=== PATIENT | male | born 1965 | race Caucasian/White ===

== ENCOUNTER 2021-01-02 13:00 | Outpatient (CLI) | payer BC, SELFPAY ==
--- NOTE | ~2021-01-02 | XR_ITS ---
EXAMINATION: XR chest 2V 01/02/2021 13:19 INDICATION: Cough for months PROCEDURE: 2 view chest COMPARISON: No prior studies for comparison. FINDINGS: The lungs are clear. The cardiomediastinal silhouette is within normal limits. There are no pleural effusions. There is no pneumothorax suspected. IMPRESSION: 1: NO ACUTE CARDIOPULMONARY DISEASE. Reviewed, dictated and finalized at location A.
--- NOTE | 2021-01-02 13:24 | ECG_ITS ---
Measurements Intervals [place] Rate: 85 P: 34 [place]: 167 QRS: -20 QRSD: 125 T: 40 QT: 352 QTc: 419 Interpretive Statements SINUS RHYTHM INCOMPLETE RIGHT BUNDLE BRANCH BLOCK DELAYED PRECORDIAL R/S TRANSITION BORDERLINE ECG Electronically Signed On 01-02-2021 13:44:47 CDT by Mal Hoffman D.O.
== END 2021-01-02 13:01 | disposition home or self-care (01) ==
LOC: ANHIMG 13:02
PROVIDERS: PCP Family Medicine; Visit Provider Nurse Practitioner Family
DX: R05 Cough (principal); R06.00 Dyspnea, unspecified; R00.2 Palpitations; I45.10 Unspecified right bundle-branch block
CPT/HCPCS: 71046; 93005

== ENCOUNTER 2021-01-04 10:53 | Outpatient (CLI) | payer BC, SELFPAY ==
--- NOTE | 2021-01-09 12:40 | WPDHOLTEREM ---
Holter/Event Monitor Holter/Event Monitor Date of procedure: 01/04/21 Holter/Event Procedure: 48 Hr Holter Monitor Indications: Dyspnea Conclusion: 1. 48 hour holter monitor on 01/04/21. 2. Underlying rhythm is sinus rhythm. HR range 51-128 bpm; average HR 72 bpm. 3. There are 30 premature supraventricular complexes. No supraventricular tachycardia. 4. There are 10 premature ventricular complexes. No ventricular tachycardia. 5. No sinoatrial or atrioventricular blocks. No significant pauses greater than 2 seconds. 6. Patient reports symptoms of dizziness/anxiousness which demonstrate sinus rhythm, HR range 91-105 bpm.
== END 2021-01-04 10:54 | disposition home or self-care (01) ==
PROVIDERS: PCP Family Medicine; Visit Provider Nurse Practitioner Family
DX: R00.2 Palpitations (principal); R05 Cough; R06.00 Dyspnea, unspecified
CPT/HCPCS: 93225; 93226

== ENCOUNTER → 2021-02-01 14:10 | Outpatient (CLI) | payer BC, SELFPAY ==
--- NOTE | ~2021-02-01 | US_ITS ---
EXAMINATION: US carotid duplex BI DATE: 02/01/2021 16:15 INDICATION: Syncope and collapse. Dizziness.. TECHNIQUE: Grayscale, color Doppler, and pulsed Doppler images of the cervical carotid arteries were obtained. The degree of vessel stenosis is placed in one of the following categories: normal, <50%, 5 0-69%, >=70% but less than near-occlusion, near-occlusion, or total occlusion. Note that percent sten osis relative to normal distal artery lumen diameter is indirectly measured from velocity measurement s as described by Mario, et al. Radiology 2003; 229:340-346. COMPARISON: None. FINDINGS: RIGHT: The right common carotid artery (CCA) peak systolic velocity (PSV) is 90 cm/s. The right internal car otid artery (ICA) PSV is 60 cm/s. The right ICA end-diastolic velocity (EDV) is 24 cm/s. The right IC A/CCA PSV ratio is 0.7. Grayscale and color Doppler images yield an estimate of <50% diameter reducti on from plaque in the ICA. The external carotid artery (ECA) PSV is 48 cm/s. There is antegrade flow in the right vertebral artery. LEFT: The left CCA PSV is 88 cm/s. The left ICA PSV is 60 cm/s. The left ICA EDV is 22 cm/s. The left ICA/C CA PSV ratio is 0.7. Grayscale and color Doppler images yield an estimate of <50% diameter reduction from plaque in the ICA. The ECA PSV is 63 cm/s. There is antegrade flow in the left vertebral artery. IMPRESSION: 1. <50% stenosis in the right internal carotid artery. 2. <50% stenosis in the left internal carotid artery. Reviewed, dictated and finalized at location A.
--- NOTE | ~2021-02-01 | MR_ITS ---
EXAMINATION: MR brain/brain stem wo con DATE: 02/01/2021 14:54 INDICATION: Dizziness. Syncope. TECHNIQUE: Magnetic resonance imaging (MRI) of the brain and brainstem was performed without intraven ous contrast. Sequences included sagittal, coronal, and axial T1-weighted FSE, axial diffusion-weight ed FS EPI, axial T2*-weighted GRE, axial T2-weighted FLAIR Propeller, and axial T2-weighted Propeller . Apparent diffusion coefficient (ADC) maps were created. COMPARISON: None. FINDINGS: There is an empty sella. There is a small parahippocampal fissure cyst on the right. There are scattered areas of nonspecific increased T2-weighted signal intensity in the cerebral white matte r, which is within normal limits for the patient's age. There is no intracranial hemorrhage, acute in farction, or abnormal intracranial mass lesion. The ventricles are normal in size. There is mucosal t hickening in the paranasal sinuses. The orbits are normal. The mastoid air cells are normal. IMPRESSION: 1. No etiology for the patient's symptoms. Reviewed, dictated and finalized at location A.
== END ==
PROVIDERS: PCP Family Medicine; Visit Provider Nurse Practitioner Family
DX: R55 Syncope and collapse (principal); E78.5 Hyperlipidemia, unspecified; I65.23 Occlusion and stenosis of bilateral carotid arteries
CPT/HCPCS: 70551; 93880

== ENCOUNTER 2021-02-12 07:35 | Outpatient (CLI) | payer BC, SELFPAY ==
--- NOTE | 2021-02-12 07:52 | EST_ITS ---
Patient Info Name: Joshua Sierra Age: 55 years : 1965 Gender: Male Ht: 69 in Wt: 190 lbs BSA: 2.07 m2 HR: 61 bpm BP: 113 / 79 mmHg Heart Rhythm: Sinus Rhythm Exam Date: 02/12/2021 8:36 AM Exam Location: [facility] Stress Patient Status: Outpatient Admit Date: 02/12/2021 Staff Ordering Physician: Martha Childress NP Attending Provider: Martha Childress NP Exercise Technologist: Aura Reyna CT Exercise Physician: Mal Hoffman DO Exam Type: CA stress test treadmill Study Info Indications I49.3 - Ventricular premature depolarization R06.00 - Dyspnea, unspecified An exercise stress test was performed. Summary 1. 1. Negative Nikko exercise stress test for ischemic ST changes by ECG criteria. 2. 2. Good functional capacity, achieving 11 METs of workload. 3. 3. Appropriate HR response to exercise. 4. 4. Appropriate HR recovery at 1 minute post exercise. 5. 5. No imaging with stress testing. 6. 6. Patient informed of the above results. Protocol: Nikko Stress ECG Details Stage: REST Duration (min): 1 min : 20 sec Speed (mph): 0.0 Grade (%): 0 HR (bpm): 66 SBP (mmHg): 113 DBP (mmHg): 79 METS: --- Stage: REST Duration (min): 6 min : 1 sec Speed (mph): 0.0 Grade (%): 0 HR (bpm): 66 SBP (mmHg): 113 DBP (mmHg): 79 METS: --- Stage: STAGE 1 Duration (min): 1 min : 0 sec Speed (mph): 1.7 Grade (%): 10 HR (bpm): 87 SBP (mmHg): 113 DBP (mmHg): 79 METS: --- Stage: STAGE 1 Duration (min): 2 min : 0 sec Speed (mph): 1.7 Grade (%): 10 HR (bpm): 101 SBP (mmHg): 113 DBP (mmHg): 79 METS: --- Stage: STAGE 1 Duration (min): 3 min : 0 sec Speed (mph): 1.7 Grade (%): 10 HR (bpm): 94 SBP (mmHg): 113 DBP (mmHg): 79 METS: --- Stage: STAGE 2 Duration (min): 1 min : 0 sec Speed (mph): 2.5 Grade (%): 12 HR (bpm): 107 SBP (mmHg): 149 DBP (mmHg): 61 METS: --- Stage: STAGE 2 Duration (min): 2 min : 0 sec Speed (mph): 2.5 Grade (%): 12 HR (bpm): 110 SBP (mmHg): 152 DBP (mmHg): 67 METS: --- Stage: STAGE 2 Duration (min): 3 min : 0 sec Speed (mph): 2.5 Grade (%): 12 HR (bpm): 112 SBP (mmHg): 152 DBP (mmHg): 67 METS: --- Stage: STAGE 3 Duration (min): 1 min : 0 sec Speed (mph): 3.4 Grade (%): 14 HR (bpm): 123 SBP (mmHg): 182 DBP (mmHg): 72 METS: --- Stage: STAGE 3 Duration (min): 2 min : 0 sec Speed (mph): 3.4 Grade (%): 14 HR (bpm): 135 SBP (mmHg): 182 DBP (mmHg): 72 METS: --- Stage: STAGE 3 Duration (min): 3 min : 0 sec Speed (mph): 3.4 Grade (%): 14 HR (bpm): 140 SBP (mmHg): 168 DBP (mmHg): 73 METS: --- Stage: STAGE 4 Duration (min): 0 min : 33 sec Speed (mph): 4.2 Grade (%): 16 HR (bpm): 143 SBP (mmHg): 168 DBP (mmHg): 73
--- NOTE | 2021-02-12 07:52 | ECHO_ITS ---
Patient Info Name: Joshua Sierra Age: 55 years : 1965 Gender: Male Ht: 69 in Wt: 190 lbs BSA: 2.07 m2 HR: 65 bpm BP: 150 / 90 mmHg Technical Quality: Good Exam Date: 02/12/2021 8:02 AM Exam Location: [facility] Patient Status: Outpatient Admit Date: 02/12/2021 Staff Ordering Physician: Martha Childress NP Jewel Grinder: Leandra Chaudhari RDCS Attending Provider: Martha Childress NP Referring Physician: Fior LOVING; Exam Type: CA echo doppler color flow Study Info Indications I49.3 - Ventricular premature depolarization Complete two-dimensional, color flow and Doppler transthoracic echocardiogram is performed. Summary 1. Complete two-dimensional, color flow and Doppler transthoracic echocardiogram is performed. 2. Left ventricular chamber dimension is normal. 3. Left ventricular systolic function is normal, estimated at 60-65%. 4. The left ventricular diastolic function is normal. 5. E/e' 8 is minimally elevated. 6. Global longitudinal strain is normal at -17.1%. 7. There is mild aortic valve sclerosis. 8. There is mild tricuspid valve regurgitation. 9. No pulmonary hypertension, estimated pulmonary arterial systolic pressure is 33 mmHg. Left Ventricle E/e' 8 is minimally elevated. Global longitudinal strain is normal at -17.1%. Left ventricular chamber dimension is normal. Left ventricular systolic function is normal, estimated at 60-65%. The left ventricular diastolic function is normal. Right Ventricle Right ventricular chamber dimension is normal. Right ventricular systolic function is normal. Left Atria Left atrial chamber dimension is normal. Right Atria Right atrial chamber dimension is normal. Aortic Valve The aortic valve is trileaflet. There is mild aortic valve sclerosis. There is no aortic valve stenosis. There is no aortic valve regurgitation. Pulmonic Valve There is no pulmonic regurgitation. Mitral Valve There is no mitral valve stenosis. There is no mitral valve regurgitation. Tricuspid Valve There is mild tricuspid valve regurgitation. No pulmonary hypertension, estimated pulmonary arterial systolic pressure is 33 mmHg. Pericardium/Pleural There is no pericardial effusion. Inferior Vena Cava Normal inferior vena cava with >50% collapse upon inspiration consistent with normal right atrial pressure, 5 mmHg. Aorta The aortic root size at the sinus of Valsalva is normal. Left Ventricular Outflow Tract Name Value Normal LVOT 2D LVOT Diameter 2.0 cm LVOT Doppler LVOT Peak Gradient 5 mmHg LVOT Mean Gradient 3 mmHg LVOT VTI 21 cm LVOT VTI/AV VTI Ratio 1.0 LVOT Stroke Volume 65 ml LVOT CO 4.5 l/min LVOT CI 2.2 l/min/m2 Pulmonic Valve Name Value Normal
== END 2021-02-12 07:36 | disposition home or self-care (01) ==
LOC: ANHCARD 07:36
PROVIDERS: PCP Family Medicine; Visit Provider Nurse Practitioner Family
DX: I49.3 Ventricular premature depolarization (principal); R00.2 Palpitations; R06.00 Dyspnea, unspecified; I36.1 Nonrheumatic tricuspid (valve) insufficiency
CPT/HCPCS: 93017; 93306

== ENCOUNTER 2021-04-10 11:07 | Outpatient (CLI) | payer BC, SELFPAY ==
--- NOTE | ~2021-04-10 | XR_ITS ---
EXAMINATION: XR hand LT min 3V DATE: 04/10/2021 11:31 INDICATION: Left hand fifth digit trigger finger. TECHNIQUE: 3 views of left hand were obtained. COMPARISON: None. FINDINGS: Bone alignment is normal. No fracture. There is mild osteoarthritis of third metacarpophala ngeal joint, fifth proximal interphalangeal joint, and second-fifth distal interphalangeal joints. IMPRESSION: 1. Mild polyarticular osteoarthritis. Reviewed, dictated and finalized at location D. ESIS SPECIALIST
== END 2021-04-10 11:08 | disposition home or self-care (01) ==
LOC: ANHIMG 11:09
PROVIDERS: PCP Family Medicine; Visit Provider Nurse Practitioner Family
DX: M19.042 Primary osteoarthritis, left hand (principal)
CPT/HCPCS: 73130

== ENCOUNTER 2021-07-28 10:46 | Emergency (ER) | payer BC, SELFPAY ==
[2021-07-28 10:53] VITALS: BP 134/92; PULSE 62; RESP 18; TEMP 36.4; O2SAT 99
[2021-07-28 11:00] VITALS: PULSE 69
[2021-07-28 11:05] VITALS: O2SAT 99
--- NOTE | 2021-07-28 11:25 | ECG_ITS ---
Measurements Intervals [place] Rate: 66 P: 18 [place]: 162 QRS: -14 QRSD: 126 T: -2 QT: 380 QTc: 398 Interpretive Statements SINUS RHYTHM RIGHT BUNDLE-BRANCH BLOCK BORDERLINE ECG COMPARED TO ECG 01/02/2021 13:38:04 CRITERIA FOR RIGHT BUNDLE-BRANCH BLOCK ARE PRESENT Electronically Signed On 07-29-2021 11:00:27 CDT by Redd Jara M.D.
[2021-07-28 11:45] VITALS: BP 129/84; BP 137/82; PULSE 68; PULSE 70
[2021-07-28 11:46] VITALS: BP 120/75; PULSE 73
[2021-07-28 11:47] LABS: Basophils Absolute Auto 0.1 K/mm3 (0.0-0.1); Basophils Percent Auto 0.5 % (0.2-1.2); Eosinophils Percent Auto 0.4 % (0-4.4); Hematocrit 45.1 % (42.0-52.0); Hemoglobin 14.8 g/dL (14.0-18.0); Immature Granulocyte Absolute 0.04 K/mm3 (0.00-0.031); Immature Granulocyte Percent A 0.4 % (0-0.5); Lymphocytes Absolute Auto 1.07 K/mm3 (0.9-3.2); Lymphocytes Percent Auto 11.2 % (18.3-44.2); Mean Corpuscular HGB Conc 32.8 g/dl (32-36); Mean Corpuscular Hemoglobin 30.8 pg (26-34); Mean Platelet Volume 9.8 fl (7.4-10.4); Monocytes Absolute Auto 0.7 K/mm3 (0.1-0.6); Monocytes Percent Auto 7.3 % (2.6-8.5); Neutrophils Absolute Auto 7.6 K/mm3 (1.3-6.7); Neutrophils Percent Auto 80.2 % (45.5-73.1); Platelet Count Result 220 k/mm3 (150-375); Red Cell Distribution Width 13.4 % (11.5-14.5); White Blood Count 9.5 K/mm3 (4.5-10.0)
[2021-07-28 11:57] LABS: Alanine Aminotransferase 25 U/L (4-50); Albumin Level 4.5 g/dL (3.5-5.1); Alkaline Phosphatase 57 U/L (38-126); Anion Gap 6 mmol/L (8-16); Aspartate Amino Transferase 39 U/L (17-59); Bilirubin,Total 0.5 mg/dL (0.2-1.3); Blood Urea Nitrogen 20 mg/dL (9-20); Carbon Dioxide 29 mmol/L (22-30); Chloride 101 mmol/L (98-107); Estimated CRCL calculation 89 ml/min; Estimated Glomerular Filt Rate > 60; Glucose 121 mg/dL (65-110); Potassium 4.8 mmol/L (3.4-5.0); Sodium 136 mmol/L (137-145)
--- NOTE | 2021-07-28 12:31 | ED.SYNCOPE ---
HPI - Syncope General Chief Complaint: Syncope Stated Complaint: syncope Time Seen by Provider: 07/28/21 12:01 Source: patient History of Present Illness HPI narrative: Patient presents with a syncopal event. Reports a history of the same and has seen his primary care doctor as well as cardiology had stress test as well as Holter monitor and ultrasounds reports all his tests are reassuring. Reports his events are sporadic and he has not had an episode for approximately 6 months. Today he was in yazdanism just sitting there when he felt warm all over his body typical of his prior events and then his head rolled back it was a witnessed event family was nearby he woke up after few seconds and then had another event and they laid him flat on the pew. Patient did not fall down or strike his head he woke up after approximately 1 minute since or 2 episodes they called EMS and he was transported to the ER. Patient ports he felt tired now but otherwise feels well he denies any chest pain or shortness of breath prior to the event. He denies s any recent fevers, cough, congestion. Related Data Home Medications Medication Instructions Recorded Confirmed finasteride 5 mg tablet 5 mg PO DAILY 02/17/19 03/13/21 Allergies Allergy/AdvReac Type Severity Reaction Status Date / Time No Known Allergies Allergy Unknown Verified 07/28/21 11:02 Review of Systems Review of Systems: CONSTITUTIONAL: Denies fever, chills, or sweats. EYES: Denies visual changes, redness, or discharge. ENT: Denies rhinorrhea, congestion, sore throat, or otalgia. CARDIOVASCULAR: Denies chest pain, palpitations, or edema. RESPIRATORY: Denies cough or dyspnea. GASTROINTESTINAL: Denies abdominal pain, nausea, vomiting, or diarrhea. GENITOURINARY: Denies dysuria or hematuria. SKIN: Denies rash or itching. MUSCULOSKELETAL: Denies back pain, joint pain, or myalgia. NEUROLOGIC: Denies headache, numbness, dizziness, or weakness. PSYCHIATRIC: Denies anxiety or depression. All systems reviewed & are unremarkable except as noted in HPI and below PMFSH Past Medical History Medical History Abnormal x-ray of hand Allergies BMI 28.0-28.9,adult Nontraumatic separation of muscle Plantar fascial fibromatosis Ringing in right ear Tinnitus Family History Family History Mother Depression Family history of elevated blood lipids Alzheimer's disease Sibling Depression Patient's brother is in good health Afib Father Family history of malignant neoplasm Pacemaker Social History Social History Smoking status: Never smoker Second hand tobacco smoke exposure: Yes Alcohol intake: current Substance use: never Substance use type: does not use 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 HEAD: Normocephalic, atraumatic. EYES: PERRLA and EOMI. ENT: Nares clear, no rhinorrhea or epistaxis. Mucous membranes moist. NECK: Supple. No masses. No JVD CHEST: Clear to auscultation. No respiratory distress. No wheezes rales or rhonchi HEART: Regular rate and rhythm. No murmur heard. Normal peripheral pulses. ABDOMEN: Soft, nontender, nondistended, normal active bowel sounds. EXTREMITIES: Normal range of motion. No edema. SKIN: Warm, dry, no rash. NEURO: No focal deficits. Alert and oriented x3. PSYCH: Normal mood and affect. Course Vital Signs Vital signs: Vital Signs Temperature 36.4 C 07/28/21 10:53 Pulse Rate 62 07/28/21 10:53 Respiratory Rate 18 07/28/21 10:53 Blood Pressure 134/92 H 07/28/21 10:53 Pulse Oximetry 99 07/28/21 10:53 Temperature 36.4 C 07/28/21 10:53 Pulse Rate 80 07/28/21 12:44 Respiratory Rate
[2021-07-28 12:44] VITALS: BP 133/86; PULSE 80; RESP 21; O2SAT 99
== END 2021-07-28 12:47 | disposition home or self-care (01) ==
PROVIDERS: Physician Assistant; Emergency Provider Emergency Medicine; PCP Family Medicine
DX: R55 Syncope and collapse (principal); I45.10 Unspecified right bundle-branch block
CPT/HCPCS: 36415; 80053; 85025; 93005; 99284

== ENCOUNTER → 2021-09-26 11:52 | Outpatient (CLI) | payer BC, SELFPAY ==
--- NOTE | ~2021-09-26 | US_ITS ---
EXAMINATION: US thyroid DATE: 09/26/2021 12:10 INDICATION: Localized swelling, mass and lump, neck. TECHNIQUE: Multiple ultrasound images of the thyroid were obtained. COMPARISON: None. FINDINGS: The right thyroid lobe measures 6.0 x 1.2 x 2.6 cm. The left thyroid lobe measures 5.8 x 2.0 x 2.2 c m. There is normal echotexture and echogenicity throughout the thyroid gland. No discrete nodules id entified. Normal vascular flow is present. IMPRESSION: 1. Normal thyroid. Reviewed, dictated and finalized at location B. IMPRESSION: 1. Normal thyroid.
== END ==
PROVIDERS: PCP Nurse Practitioner Family; Visit Provider Nurse Practitioner Family
DX: R22.1 Localized swelling, mass and lump, neck (principal)
CPT/HCPCS: 76536

== ENCOUNTER 2021-10-18 01:55 | Day surgery (SDC) | payer BC, SELFPAY ==
[2021-10-09 11:14] VITALS: BMI 28.1
[2021-10-18 11:55] VITALS: BP 143/87; PULSE 78; RESP 18; TEMP 36.8; O2SAT 97; BMI 29.0
[2021-10-18] MEDS: LACTATED RINGERS 1,000 ML 150 ML IV CONT (12:16)
--- NOTE | 2021-10-18 12:24 | PM.HPGS ---
History of Present Illness History of Present Illness Consent: Risks, benefits, and alternatives have been discussed and questions answered. Patient agrees to proceed with procedure. Chief complaint: dysphagia Narrative: Joshua Sierra is a 56 year old male ?dysphagia? for approximately a year and a half but is progressively getting worse. ? States he does not really consider it dysphagia.? Reports on the right-side of his neck (next to thryroid) that he has this intermittent sensation that something is there ? also reports associated tickling sensation.? this happens states feels like he can not breathe. sensation can last a few seconds to few minutes.? sometimes again occur several times a day, ? States this does not happen every day. ? States he will try to clear his throat or cough this does not always help. Review of Systems Review of Systems: All systems reviewed & are unremarkable except as noted in HPI and below PMFSH Past Medical History Medical History Abnormal x-ray of hand Allergies BMI 28.0-28.9,adult Nontraumatic separation of muscle Overweight (BMI 25.0-29.9) Plantar fascial fibromatosis Ringing in right ear Tinnitus Family History Family History Mother Depression Family history of elevated blood lipids Alzheimer's disease Sibling Depression Patient's brother is in good health Afib Father Family history of malignant neoplasm Pacemaker Social History Social History Smoking status: Never smoker Second hand tobacco smoke exposure: Yes Alcohol intake: current Alcohol use details: occasiona use Substance use: never Substance use type: does not use Living arrangements: with family Additional living arrangements comments: lives with life partner 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 Gender identity (if verbalized by the patient): Male Spiritual care concerns: No Meds Home Medications and Allergies Home Medications Medication Instructions Recorded Confirmed Type finasteride 5 mg tablet 5 mg PO DAILY 02/17/19 10/18/21 History hydroxyzine HCl 10 mg tablet 10 mg PO TID PRN anxiety #30 tabs 01/30/21 10/18/21 Rx pravastatin 20 mg tablet 10 mg PO DAILY #90 tabs 03/13/21 10/18/21 Rx escitalopram oxalate 10 mg tablet 10 mg PO DAILY #90 tabs 07/22/21 10/18/21 Rx (Lexapro) fexofenadine 60 mg capsule 60 mg PO PRN PRN Allergic Symptoms 10/09/21 10/18/21 History pantoprazole 40 mg tablet,delayed 40 mg PO QAM #30 tabs 10/18/21 Rx release Allergies Allergy/AdvReac Type Severity Reaction Status Date / Time No Known Allergies Allergy Unknown Verified 10/18/21 12:04 Vital Signs Vital Signs - 24 hr 10/18/21 11:55 Temperature 36.8 C Pulse Rate 78 Respiratory Rate 18 Blood Pressure 143/87 H Pulse Oximetry 97 Oxygen Delivery Room Air Exam Const: General: alert Orientation/consciousness: patient oriented x3 Resp: Auscultation: clear to auscultation bilaterally Cardio: Rhythm: regular rhythm GI: GI Palp: Yes Soft to palpation and No Tenderness to palpation present (GI) Neuro: General: patient oriented x3 Assessment and Plan Assessment and plan (1) Dysphagia: Code(s): R13.10 - Dysphagia, unspecified Status: Acute Assessment and Plan: EGD with possible biopsy or dilatation or cautery.
--- NOTE | 2021-10-18 12:42 | WPDANESEPPF ---
Anes - Initial Pre Proc Eval Procedure: Operation Date: 10/18/21 13:15 Proposed Procedures p Esophagogastroduodenoscopy - Thomas Strong MD Date/Time: 10/18/21 12:42 Surgeon: Thomas Strong MD Pre Op Diagnosis: dysphagia Patient Data Age: 56 Gender: M Height: 1.75 m Weight: 89.4 kg Last Vital Signs Temp 98.2 F 10/18/21 11:55 Pulse 78 10/18/21 11:55 Resp 18 10/18/21 11:55 BP 143/87 H 10/18/21 11:55 Pulse Ox 97 10/18/21 11:55 O2 Del Method Room Air 10/18/21 11:55 Allergies Allergy/AdvReac Type Severity Reaction Status Date / Time No Known Allergies Allergy Unknown Verified 10/18/21 12:04 Home Medications Medication Instructions Recorded Confirmed Type finasteride 5 mg tablet 5 mg PO DAILY 02/17/19 10/18/21 History hydroxyzine HCl 10 mg tablet 10 mg PO TID PRN anxiety #30 tabs 01/30/21 10/18/21 Rx pravastatin 20 mg tablet 10 mg PO DAILY #90 tabs 03/13/21 10/18/21 Rx escitalopram oxalate 10 mg tablet 10 mg PO DAILY #90 tabs 07/22/21 10/18/21 Rx (Lexapro) fexofenadine 60 mg capsule 60 mg PO PRN PRN Allergic Symptoms 10/09/21 10/18/21 History Patient hx anesthesia problems: none Family hx anesthesia problems: none Results Review: All pre-operative results and documents have been reviewed as part of the pre-operative evaluation. [facility] Past Medical History Medical History (Updated 10/18/21 @ 12:24 by Thomas Strong MD) Abnormal x-ray of hand Allergies BMI 28.0-28.9,adult Nontraumatic separation of muscle Overweight (BMI 25.0-29.9) Plantar fascial fibromatosis Ringing in right ear Tinnitus Family History Family History Mother Depression Family history of elevated blood lipids Alzheimer's disease Sibling Depression Patient's brother is in good health Afib Father Family history of malignant neoplasm Pacemaker Social History Social History Smoking status: Never smoker Second hand tobacco smoke exposure: Yes Alcohol intake: current Alcohol use details: occasiona use Substance use: never Substance use type: does not use Living arrangements: with family Additional living arrangements comments: lives with life partner 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 Informed Consent: The patient's anesthetic plan and its attendant risks and benefits were discussed with the patient/family/POA. Questions were solicited and answers provided to the satisfaction of the patient/family/POA.
[2021-10-18 13:21] VITALS: BP 118/72; PULSE 66; RESP 24; O2SAT 98
[2021-10-18 13:31] VITALS: BP 120/82; PULSE 68; RESP 20; O2SAT 98
[2021-10-18 13:41] VITALS: BP 122/87; PULSE 64; RESP 20; O2SAT 97
== END 2021-10-18 13:59 | disposition home or self-care (01) ==
PROVIDERS: PCP Nurse Practitioner Family; Visit Provider Internal Medicine Gastroenterology
PROC: 0DJ08ZZ Inspection of Upper Intestinal Tract, Via Natural or Artificial Opening Endoscopic (ICD-10-PCS; CPT 43235; principal; 2021-10-18 13:15)
DX: K22.70 Barrett's esophagus without dysplasia (principal); R13.12 Dysphagia, oropharyngeal phase
CPT/HCPCS: 43239; 87081; 88305; J2001; J2704; J7120

== ENCOUNTER → 2022-01-15 15:12 | Outpatient (CLI) | payer BC, SELFPAY ==
--- NOTE | ~2022-01-15 | XR_ITS ---
EXAM: XR knee RT 3V DATE: 01/15/2022 15:35 HISTORY: M25.561 - Pain in right knee . COMPARISON: 07/10/2021. FINDINGS: Normal mineralization. No fracture or dislocation. No lytic or blastic lesion. Mild medial joint space narrowing. Mild tricompartmental osteophytosis. Moderate volume joint fluid. No erosion or periosteal change. Soft tissues within normal limits. IMPRESSION: Mild tricompartmental right knee osteoarthritis. Moderate right knee joint effusion. Reviewed, dictated and finalized at location K. IMPRESSION: Mild tricompartmental right knee osteoarthritis. Moderate right kne e joint effusion.
== END ==
PROVIDERS: PCP Family Medicine; Visit Provider Nurse Practitioner Family
DX: M17.11 Unilateral primary osteoarthritis, right knee (principal); M25.461 Effusion, right knee
CPT/HCPCS: 73562

== ENCOUNTER → 2022-01-22 11:20 | Outpatient (CLI) | payer BC, SELFPAY ==
--- NOTE | ~2022-01-22 | US_ITS ---
EXAMINATION: US abdomen complete DATE: 01/22/2022 12:03 INDICATION: R10.9 - Unspecified abdominal pain TECHNIQUE: Multiple grayscale and Doppler ultrasound images of the abdomen were obtained. COMPARISON: None available. FINDINGS: The visualized portions of the pancreas are normal. The liver is normal with normal echogen icity and echotexture. No surface nodularity. Normal hepatopetal flow in the main portal vein. The ga llbladder is normal with no abnormal wall thickening, pericholecystic fluid or stones. The common jewell e duct measures 5 mm. There was no sonographic Patterson sign. The visualized portions of the aorta and inferior vena cava are normal. The right kidney measures 9.4 x 5.0 x 5.7. The left kidney measures 10.8 x 5.9 x 4.4. The kidneys dem onstrate normal parenchymal echogenicity. Simple left renal cysts. There is no hydronephrosis. The sp lisbet is normal in appearance and measures 11 cm. IMPRESSION: Normal abdominal ultrasound findings. Reviewed, dictated and finalized at location K.
== END ==
PROVIDERS: PCP Family Medicine; Visit Provider Nurse Practitioner Family
DX: R10.9 Unspecified abdominal pain (principal); N28.1 Cyst of kidney, acquired; A09 Infectious gastroenteritis and colitis, unspecified
CPT/HCPCS: 76700

== ENCOUNTER 2022-04-11 02:00 | Day surgery (SDC) | payer BC, SELFPAY ==
[2022-04-01 10:30] VITALS: BMI 28.1
[2022-04-11 11:46] VITALS: BP 156/102; PULSE 110; RESP 18; TEMP 36.2; O2SAT 98
[2022-04-11] MEDS: LACTATED RINGERS 1,000 ML 150 ML IV CONT (11:50)
--- NOTE | 2022-04-11 12:16 | WPDANESEPPF ---
Anes - Initial Pre Proc Eval Procedure: Operation Date: 04/11/22 13:00 Proposed Procedures p Colonoscopy - Thomas Strong MD Date/Time: 04/11/22 12:16 Surgeon: Thomas Strong MD Pre Op Diagnosis: melena Patient Data Age: 57 Gender: M Height: 1.75 m Weight: 86.5 kg Last Vital Signs Temp 36.2 C L 04/11/22 11:46 Pulse 110 H 04/11/22 11:46 Resp 18 04/11/22 11:46 BP 156/102 H 04/11/22 11:46 Pulse Ox 98 04/11/22 11:46 O2 Del Method Room Air 04/11/22 11:46 Allergies Allergy/AdvReac Type Severity Reaction Status Date / Time No Known Allergies Allergy Unknown Verified 04/11/22 11:46 Home Medications Medication Instructions Recorded Confirmed Type finasteride 5 mg tablet 5 mg PO DAILY 02/17/19 04/02/22 History pantoprazole 40 mg tablet,delayed 40 mg PO QAM #30 tabs 01/01/22 04/02/22 Rx release tamsulosin 0.4 mg capsule (Flomax) 0.4 mg PO DAILY 01/15/22 04/02/22 History cetirizine 10 mg capsule (Zyrtec) 10 mg PO DAILY PRN Allergy Symptoms 01/21/22 04/02/22 History escitalopram oxalate 10 mg tablet 10 mg PO DAILY #90 tabs 02/09/22 04/02/22 Rx (Lexapro) albuterol sulfate 90 mcg/actuation 2 inh inhalation Q4H PRN shortness 04/02/22 04/11/22 Rx aerosol inhaler of breath or wheezing #8.5 grams pravastatin 20 mg tablet See Rx Instructions .Route 04/08/22 04/11/22 Rx .COMPLEX #90 tabs Patient hx anesthesia problems: none Family hx anesthesia problems: none Results Review: All pre-operative results and documents have been reviewed as part of the pre-operative evaluation. [facility] Past Medical History Medical History (Updated 04/10/22 @ 09:23 by Joby Lucero DO) Abnormal x-ray of hand Allergies Anxiety BMI 28.0-28.9,adult Hyperlipidemia LDL goal <130 Nontraumatic separation of muscle Overweight (BMI 25.0-29.9) Plantar fascial fibromatosis Ringing in right ear Tinnitus Surgical History Surgical History (Updated 04/10/22 @ 09:23 by Joby Lucero DO) History of surgical removal of pituitary gland Family History Family History Mother Depression Family history of elevated blood lipids Alzheimer's disease Sibling Depression Patient's brother is in good health Afib Father Family history of malignant neoplasm Pacemaker Social History Social History (Updated 04/02/22 @ 12:41 by Beba Hensley [facility]) Smoking status: Never smoker Second hand tobacco smoke exposure: Yes Alcohol intake: current Drinks per week: 2 Alcohol use details: occasiona use Substance use: never Substance use type: does not use Lack of Transportation: No Lack of Food: Never True Current Housing: I Have Housing Concerned About Future Housing: No Difficulty Paying Gas/Electric Bills: No Difficulty Paying for Meds: No Currently Unemployed: YES Education: Bachelor's Degree Difficulty w/ Childcare or Family Care: No Living arrangements: with family Additional living arrangements comments: lives with life partner 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 Informed Consent: The patient's anesthetic plan and its attendant risks and benefits were discussed with the patient/family/POA. Questions were solicited and answers provided to the satisfaction of the patient/family/POA.
--- NOTE | 2022-04-11 12:18 | PM.HPGS ---
History of Present Illness History of Present Illness Consent: Risks, benefits, and alternatives have been discussed and questions answered. Patient agrees to proceed with procedure. Chief complaint: melena Narrative: Joshua Sierra is a 57 year old male referred for investigation of blood in his stool his Stool for Hemoccult test. He has been having diarrhea issue since August of this year. He has not been traveling prior to that except for trip to [place]. he has had many stool studies all which were negative. Review of Systems Review of Systems: All systems reviewed & are unremarkable except as noted in HPI and below PMFSH Past Medical History Medical History Abnormal x-ray of hand Allergies Anxiety BMI 28.0-28.9,adult Hyperlipidemia LDL goal <130 Nontraumatic separation of muscle Overweight (BMI 25.0-29.9) Plantar fascial fibromatosis Ringing in right ear Tinnitus Surgical History Surgical History History of surgical removal of pituitary gland Family History Family History Mother Depression Family history of elevated blood lipids Alzheimer's disease Sibling Depression Patient's brother is in good health Afib Father Family history of malignant neoplasm Pacemaker Social History Social History Smoking status: Never smoker Second hand tobacco smoke exposure: Yes Alcohol intake: current Drinks per week: 2 Alcohol use details: occasiona use Substance use: never Substance use type: does not use Lack of Transportation: No Lack of Food: Never True Current Housing: I Have Housing Concerned About Future Housing: No Difficulty Paying Gas/Electric Bills: No Difficulty Paying for Meds: No Currently Unemployed: YES Education: Bachelor's Degree Difficulty w/ Childcare or Family Care: No Living arrangements: with family Additional living arrangements comments: lives with life partner 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 Gender identity (if verbalized by the patient): Male Spiritual care concerns: No Meds Home Medications and Allergies Home Medications Medication Instructions Recorded Confirmed Type finasteride 5 mg tablet 5 mg PO DAILY 02/17/19 04/02/22 History pantoprazole 40 mg tablet,delayed 40 mg PO QAM #30 tabs 01/01/22 04/02/22 Rx release tamsulosin 0.4 mg capsule (Flomax) 0.4 mg PO DAILY 01/15/22 04/02/22 History cetirizine 10 mg capsule (Zyrtec) 10 mg PO DAILY PRN Allergy Symptoms 01/21/22 04/02/22 History escitalopram oxalate 10 mg tablet 10 mg PO DAILY #90 tabs 02/09/22 04/02/22 Rx (Lexapro) albuterol sulfate 90 mcg/actuation 2 inh inhalation Q4H PRN shortness 04/02/22 04/11/22 Rx aerosol inhaler of breath or wheezing #8.5 grams pravastatin 20 mg tablet See Rx Instructions .Route 04/08/22 04/11/22 Rx .COMPLEX #90 tabs Allergies Allergy/AdvReac Type Severity Reaction Status Date / Time No Known Allergies Allergy Unknown Verified 04/11/22 11:46 Vital Signs Vital Signs - 24 hr 04/11/22 11:46 Temperature 36.2 C L Pulse Rate 110 H Respiratory Rate 18 Blood Pressure 156/102 H Pulse Oximetry 98 Oxygen Delivery Room Air Exam Const: General: alert Orientation/consciousness: patient oriented x3 Resp: Auscultation: clear to auscultation bilaterally Cardio: Rhythm: regular rhythm GI: GI Palp: Yes Soft to palpation and No Tenderness to palpation present (GI) Neuro: General: patient oriented x3 Assessment and Plan Assessment and plan (1) Blood in stool: Code(s): K92.1 - Melena Status: Acute Assessment and Plan: Colonoscopy with possible biopsy or polypectomy or cautery or injection of substances.
[2022-04-11 13:00] VITALS: BP 118/74; PULSE 78; RESP 21; O2SAT 97
[2022-04-11 13:10] VITALS: BP 127/87; PULSE 70; RESP 16; O2SAT 97
[2022-04-11 13:20] VITALS: BP 129/88; PULSE 76; RESP 18; O2SAT 98
--- NOTE | 2022-04-11 13:36 | SUR.PHASEII ---
pt awaiting [facility] Belt Sander, Robert stated he would arie here around 2pm.
== END 2022-04-11 13:43 | disposition home or self-care (01) ==
PROVIDERS: PCP Family Medicine; Visit Provider Internal Medicine Gastroenterology
PROC: 0DJD8ZZ Inspection of Lower Intestinal Tract, Via Natural or Artificial Opening Endoscopic (ICD-10-PCS; CPT 45378; principal; 2022-04-11 13:00)
DX: R19.7 Diarrhea, unspecified (principal); K57.30 Diverticulosis of large intestine without perforation or abscess without bleeding; K92.1 Melena; E78.5 Hyperlipidemia, unspecified; F41.9 Anxiety disorder, unspecified; Z79.51 Long term (current) use of inhaled steroids
CPT/HCPCS: 45380; 88305; J2704; J7120

== ENCOUNTER 2022-09-18 19:17 | Emergency (ER) | payer BC, SELFPAY ==
--- NOTE | 2022-09-18 19:20 | ED.URI ---
HPI - URI/Sore Throat General Chief Complaint: Upper Respiratory Infection Stated Complaint: Cough/Sinus Source: patient and RN notes reviewed History of Present Illness HPI Narrative: 57-year-old male presents urgent care with complaints of runny nose, congestion sore throat, cough, and chest congestion. Patient states he has been battling these symptoms for last 5 weeks. Patient says for the last week he has had worsening congestion and now some shortness of breath and wheezing in his chest. Denies any fevers, chills, vomiting, diarrhea, or chest pain. Patient has been taking Mucinex as well as Rose at home with minimal relief. Some parts of this dictation were generated by voice recognition software and may contain typographical and/or grammatical inaccuracies. Related Data Home Medications Medication Instructions Recorded Confirmed finasteride 5 mg tablet 5 mg PO DAILY 02/17/19 09/18/22 tamsulosin 0.4 mg capsule (Flomax) 0.4 mg PO DAILY 01/15/22 09/18/22 cetirizine 10 mg capsule (Zyrtec) 10 mg PO DAILY PRN Allergy Symptoms 01/21/22 09/18/22 Allergies Allergy/AdvReac Type Severity Reaction Status Date / Time No Known Allergies Allergy Unknown Verified 09/18/22 19:21 Review of Systems Review of Systems: Pertinent positives and pertinent negatives per HPI. ON LICENSE OF [facility] Past Medical History Medical History Abnormal x-ray of hand Allergies Anxiety BMI 28.0-28.9,adult Hyperlipidemia LDL goal <130 Nontraumatic separation of muscle Overweight (BMI 25.0-29.9) Plantar fascial fibromatosis Ringing in right ear Tinnitus Surgical History Surgical History History of surgical removal of pituitary gland Family History Family History Mother Depression Family history of elevated blood lipids Alzheimer's disease Sibling Depression Patient's brother is in good health Afib Father Family history of malignant neoplasm Pacemaker Social History Social History Smoking status: Never smoker Second hand tobacco smoke exposure: Yes Alcohol intake: current Drinks per week: 2 Alcohol use details: occasiona use Substance use: never Substance use type: does not use Lack of Transportation: No Lack of Food: Never True Current Housing: I Have Housing Concerned About Future Housing: No Difficulty Paying Gas/Electric Bills: No Difficulty Paying for Meds: No Currently Unemployed: YES Education: Bachelor's Degree Difficulty w/ Childcare or Family Care: No Living arrangements: with family Additional living arrangements comments: lives with life partner Occupation/Education: retired 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 There is no relevant family history pertinent to the patient complaint. Exam Narrative: GENERAL: This is a well-nourished, well-developed patient, in no apparent distress. HEAD: normocephalic, atraumatic. EYES: Sclera clear/white. Vision is grossly intact. EARS: External ears normal, auditory canals clear and without drainage, TMs normal without perforation. Hearing grossly intact. NOSE: External nose normal with clear nasal discharge, nares with redness and slight edema. THROAT: Mucous membranes moist, posterior pharynx clear. NECK: Neck supple, non-tender without lymphadenopathy, masses or thyromegaly. CARDIOVASCULAR: Regular rate and rhythm without murmurs, gallops, or rubs. RESPIRATORY: Clear to auscultation. Breath sounds equal bilaterally. No wheezes, rales, or rhonchi. GASTROINTESTINAL: Ab
[2022-09-18 19:24] VITALS: BP 131/79; PULSE 84; RESP 18; TEMP 36.4; O2SAT 97
[2022-09-18 19:26] VITALS: BP 131/79; PULSE 84; RESP 18; TEMP 36.4; O2SAT 97
== END 2022-09-18 19:58 | disposition home or self-care (01) ==
PROVIDERS: Emergency Provider Nurse Practitioner Family; PCP Family Medicine
DX: J40 Bronchitis, not specified as acute or chronic (principal); J32.9 Chronic sinusitis, unspecified; E78.5 Hyperlipidemia, unspecified
CPT/HCPCS: 99213; G0463

== ENCOUNTER 2023-12-02 00:53 | Day surgery (SDC) | payer BC, SELFPAY ==
[2023-11-12 13:31] VITALS: BMI 28.3
[2023-12-02 12:33] VITALS: BP 128/80; PULSE 65; RESP 16; TEMP 36.2; O2SAT 98; BMI 28.8
[2023-12-02] MEDS: LACTATED RINGERS 1,000 ML 150 ML IV CONT (13:05)
--- NOTE | 2023-12-02 13:35 | WPDANESEPPF ---
Anes - Initial Pre Proc Eval Procedure: Operation Date: 12/02/23 14:00 Proposed Procedures p Esophagogastroduodenoscopy - Rashid Driver MD Date/Time: 12/02/23 13:35 Surgeon: Rashid Driver MD Pre Op Diagnosis: GERD w/Esophagitis w/o bleeding, Varghese's Patient Data Age: 58 Gender: M Height: 1.75 m Weight: 88.6 kg Last Vital Signs Temp 97.1 F L 12/02/23 12:33 Pulse 65 12/02/23 12:33 Resp 16 12/02/23 12:33 BP 128/80 12/02/23 12:33 Pulse Ox 98 12/02/23 12:33 O2 Del Method Room Air 12/02/23 12:33 Allergies Allergy/AdvReac Type Severity Reaction Status Date / Time No Known Allergies Allergy Unknown Verified 12/02/23 12:40 Home Medications Medication Instructions Recorded Confirmed Type finasteride 5 mg tablet 5 mg PO DAILY 02/17/19 12/02/23 History tamsulosin 0.4 mg capsule (Flomax) 0.4 mg PO DAILY 01/15/22 12/02/23 History cetirizine 10 mg capsule (Zyrtec) 10 mg PO DAILY PRN Allergy Symptoms 01/21/22 12/02/23 History albuterol sulfate 90 mcg/actuation 2 puff inhalation QID PRN 04/14/23 12/02/23 Rx aerosol inhaler shortness of breath or wheezing #8.5 grams oxybutynin chloride 5 mg tablet 5 mg PO BID 04/14/23 12/02/23 History pravastatin 20 mg tablet See Rx Instructions .Route 06/26/23 12/02/23 Rx .COMPLEX #90 tabs escitalopram oxalate 10 mg tablet 10 mg PO DAILY #90 tabs 08/20/23 12/02/23 Rx (Lexapro) pantoprazole 40 mg tablet,delayed See Rx Instructions .Route 10/20/23 12/02/23 Rx release .COMPLEX #90 tabs prednisone 10 mg tablet 10 mg PO BID #20 tabs 11/17/23 12/02/23 Rx Patient hx anesthesia problems: none Family hx anesthesia problems: none Results Review: All pre-operative results and documents have been reviewed as part of the pre-operative evaluation. [facility] Past Medical History Medical History Abnormal x-ray of hand Allergies Anxiety BMI 28.0-28.9,adult Hyperlipidemia LDL goal <130 Nontraumatic separation of muscle Overweight (BMI 25.0-29.9) Plantar fascial fibromatosis Ringing in right ear Tinnitus Surgical History Surgical History History of surgical removal of pituitary gland Family History Family History (Updated 11/17/23 @ 11:30 by AJKOB Schmidt) Mother Depression Family history of elevated blood lipids Alzheimer's disease Sibling Depression Patient's brother is in good health Afib Father Family history of malignant neoplasm Pacemaker Social History Social History Smoking status: Never smoker Second hand tobacco smoke exposure: Yes Alcohol intake: current Drinks per week: 2 Alcohol use details: occasiona use Substance use: never Substance use type: does not use Do You Feel Safe in your Home?: Yes Lack of Transportation: No Lack of Food: Never True Current Housing: I Have Housing Concerned About Future Housing: No Difficulty Paying Gas/Electric Bills: No Difficulty Paying for Meds: No Currently Unemployed: No Education: Bachelor's Degree Difficulty w/ Childcare or Family Care: No Living arrangements: with family Additional living arrangements comments: lives with life partner Occupation/Education: retired 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
--- NOTE | 2023-12-02 13:42 | PM.HPGS ---
History of Present Illness History of Present Illness Consent: Risks, benefits, and alternatives have been discussed and questions answered. Patient agrees to proceed with procedure. Chief complaint: GERD w/Esophagitis w/o bleeding, Varghese's Narrative: Joshua Sierra is a 58 year old male with gerd and found Varghese's 2021, on ppi daily Review of Systems Review of Systems: All systems reviewed & are unremarkable except as noted in HPI and below PMFSH Past Medical History Medical History Abnormal x-ray of hand Allergies Anxiety BMI 28.0-28.9,adult Hyperlipidemia LDL goal <130 Nontraumatic separation of muscle Overweight (BMI 25.0-29.9) Plantar fascial fibromatosis Ringing in right ear Tinnitus Surgical History Surgical History History of surgical removal of pituitary gland Family History Family History (Updated 11/17/23 @ 11:30 by JAKOB Schmidt) Mother Depression Family history of elevated blood lipids Alzheimer's disease Sibling Depression Patient's brother is in good health Afib Father Family history of malignant neoplasm Pacemaker Social History Social History Smoking status: Never smoker Second hand tobacco smoke exposure: Yes Alcohol intake: current Drinks per week: 2 Alcohol use details: occasiona use Substance use: never Substance use type: does not use Do You Feel Safe in your Home?: Yes Lack of Transportation: No Lack of Food: Never True Current Housing: I Have Housing Concerned About Future Housing: No Difficulty Paying Gas/Electric Bills: No Difficulty Paying for Meds: No Currently Unemployed: No Education: Bachelor's Degree Difficulty w/ Childcare or Family Care: No Living arrangements: with family Additional living arrangements comments: lives with life partner Occupation/Education: retired 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 Gender identity (if verbalized by the patient): Male Spiritual care concerns: No Meds Home Medications and Allergies Home Medications Medication Instructions Recorded Confirmed Type finasteride 5 mg tablet 5 mg PO DAILY 02/17/19 12/02/23 History tamsulosin 0.4 mg capsule (Flomax) 0.4 mg PO DAILY 01/15/22 12/02/23 History cetirizine 10 mg capsule (Zyrtec) 10 mg PO DAILY PRN Allergy Symptoms 01/21/22 12/02/23 History albuterol sulfate 90 mcg/actuation 2 puff inhalation QID PRN 04/14/23 12/02/23 Rx aerosol inhaler shortness of breath or wheezing #8.5 grams oxybutynin chloride 5 mg tablet 5 mg PO BID 04/14/23 12/02/23 History pravastatin 20 mg tablet See Rx Instructions .Route 06/26/23 12/02/23 Rx .COMPLEX #90 tabs escitalopram oxalate 10 mg tablet 10 mg PO DAILY #90 tabs 08/20/23 12/02/23 Rx (Lexapro) pantoprazole 40 mg tablet,delayed See Rx Instructions .Route 10/20/23 12/02/23 Rx release .COMPLEX #90 tabs prednisone 10 mg tablet 10 mg PO BID #20 tabs 11/17/23 12/02/23 Rx Allergies Allergy/AdvReac Type Severity Reaction Status Date / Time No Known Allergies Allergy Unknown Verified 12/02/23 12:40 Vital Signs Vital Signs - 24 hr 12/02/23 12:33 Temperature 97.1 F L Pulse Rate 65 Respiratory Rate 16 Blood Pressure 128/80 Pulse Oximetry 98 Oxygen Delivery Room Air Exam Const: General: comfortable and no acute distress HENMT: Face/Nose/Sinus: Normal nares present Eyes: General: appearance normal, both eyes and all related structures Neck: Neck: no JVD Resp: Auscultation: clear to auscultation bilaterally Cardio: Rate: regular rate Rhythm: regular rhythm GI: Inspection: non-distended GI Palp: Yes Soft to palpation Skin: General skin exam: normal color Neuro: General: gait normal Speech: normal speech Extrem: General: normal to inspection Psych:
[2023-12-02 14:11] VITALS: BP 129/85; PULSE 62; RESP 16; O2SAT 97
[2023-12-02 14:21] VITALS: BP 128/88; PULSE 60; RESP 16; O2SAT 97
[2023-12-02 14:31] VITALS: BP 138/94; PULSE 55; RESP 16; O2SAT 97
== END 2023-12-02 14:36 | disposition home or self-care (01) ==
PROVIDERS: PCP Family Medicine; Referring Provider Nurse Practitioner Family; Visit Provider Internal Medicine Gastroenterology
PROC: 0DJ08ZZ Inspection of Upper Intestinal Tract, Via Natural or Artificial Opening Endoscopic (ICD-10-PCS; CPT 43235; principal; 2023-12-02 14:00)
DX: K22.70 Barrett's esophagus without dysplasia (principal); K22.89 Other specified disease of esophagus; K21.00 Gastro-esophageal reflux disease with esophagitis, without bleeding; K21.9 Gastro-esophageal reflux disease without esophagitis; F41.9 Anxiety disorder, unspecified; E78.5 Hyperlipidemia, unspecified; Z79.51 Long term (current) use of inhaled steroids; Z79.52 Long term (current) use of systemic steroids; Z98.890 Other specified postprocedural states; Z80.9 Family history of malignant neoplasm, unspecified
CPT/HCPCS: 43239; 88305; J2704; J7120

== ENCOUNTER 2024-10-28 16:17 | Emergency (ER) | payer BC, SELFPAY ==
--- NOTE | ~2024-10-28 | XR_ITS ---
XR hip LT min 2V Ordering provider: Jas Gibbs APRN History: . left hip pain . Comparison: None. FINDINGS: BONES: No acute fracture or dislocation. HIP JOINT SPACES: Narrowing of the joint space suggestive of severe osteoarthritic changes of the lef t SACROILIAC JOINT SPACES/LUMBAR SPINE: The sacroiliac joint spaces are normal. Mild degenerative heredia es of the visualized lower lumbar spine. PUBIC SYMPHYSIS: Normal. SOFT TISSUES: Normal. IMPRESSION: No acute osseous abnormality pelvis and left hip. Severe left hip osteoarthritic changes. Reviewed, dictated and finalized at location A.
--- NOTE | 2024-10-28 16:22 | ED_ITS ---
HPI - Extremity Injury (Lower) General Chief Complaint: Extremity Injury, Lower Stated Complaint: Left Hip Pain Time Seen by Provider: 10/28/24 16:22 Source: patient Mode of arrival: ambulatory Limitations: no limitations History of Present Illness HPI Narrative: Joshua is a 59-year-old male patient presenting to the clinic today with complaints of left lateral hip pain. Reports on October 13 he was on a cruise and was drinking wine and woke up with hip pain. No known injury however he does not recall the events after drinking a lot of wine. Has pain and numbness to the lateral hip. Has been taking Tylenol without much relief. Rates pain 3/10- worse with movement and lying flat. States the pain radiates across the posterior hip as well. No loss of bowel or bladder. Denies any saddle anesthesia. Related Data Home Medications ?Medication ?Instructions ?Recorded ?Confirmed ?Last Taken ?Type finasteride 5 mg tablet 5 mg PO DAILY 02/17/19 10/19/24 12/01/23 History cetirizine 10 mg capsule (Zyrtec) 10 mg PO DAILY PRN Allergy Symptoms 01/21/22 10/19/24 12/01/23 History oxybutynin chloride 5 mg tablet 5 mg PO BID 04/14/23 10/19/24 12/01/23 History Allergies Allergy/AdvReac Type Severity Reaction Status Date / Time No Known Allergies Allergy Unknown Verified 10/28/24 16:19 Review of Systems Review of Systems: Pertinent positives per HPI. Patient denies any fever, chills, rash, headache, visual changes, dizziness, cough, runny nose, sore throat, shortness of breath, chest pain, palpitations, nausea, vomiting, diarrhea, constipation, abdominal pain, or any urinary issues. [facility] Past Medical History Medical History Acute otitis media with effusion of left ear Hard of hearing Overweight (BMI 25.0-29.9) Allergies Abnormal x-ray of hand BMI 28.0-28.9,adult Anxiety Hyperlipidemia LDL goal <130 Nontraumatic separation of muscle Plantar fascial fibromatosis Ringing in right ear Tinnitus Surgical History Surgical History History of surgical removal of pituitary gland Family History Family History Mother Depression Family history of elevated blood lipids Alzheimer's disease Sibling Depression Patient's brother is in good health Afib Father Family history of malignant neoplasm Pacemaker Social History Social History Smoking status: Never smoker Second hand tobacco smoke exposure: Yes Alcohol intake: current Drinks per week: 2 Alcohol use details: occasiona use Substance use: never Substance use type: does not use Do You Feel Safe in your Home?: Yes Lack of Transportation: No Lack of Food: Never True Current Housing: I Have Housing Concerned About Future Housing: No Difficulty Paying Gas/Electric Bills: No Difficulty Paying for Meds: No Currently Unemployed: No Education: Bachelor's Degree Difficulty w/ Childcare or Family Care: No Living arrangements: with family Additional living arrangements comments: lives with life partner Occupation/Education: retired 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 There is no relevant family history pertinent to the patient complaint. Exam Narrative: General: Well-developed, well nourished, in no apparent distress Head: Normocephalic, atraumatic. Cardio: Regular rate and rhythm, s1 and s2 normal, no murmur appreciated. Resp: Clear to auscultation bilaterally, no rhonchi, rales, wheezing or rubs. Musculoskeletal: No deformity, tender to palpation over the left lateral and posterior hip, grossly normal range of motion, muscle strength strong and equal, peripheral pulse strong, no edema, no cyanosis, normal gait and station Course Course Emergency Course: Portions of this record may have been created with voice recognition software. Level of Care: Express Care Visit Vital Signs Vital signs: Vital Signs Temperature 36.2 C L 10/28/24 16:26 Pulse Rate 75 10/28/24 16:26 Respiratory Rate 16 10/28/24 16:26 Blood Pressure 150/97 H 10/28/24 16:26 Pulse Oximetry 98 10/28/24 16:26 Temperature 36.2 C L 10/28/24 16:26 Pulse Rate 75 10/28/24 16:26 Respiratory Rate 16 10/28/24 16:26 Blood Pressure 150/97 H 10/28/24 16:26 Pulse Oximetry 98 10/28/24 16:26 Vital signs reviewed MDM - Extremity Injury (Lower) MDM Narrative Medical decision making narrative: At the time of visit patient is resting comfortably on the exam table. Patient appears to be nontoxic. Patient has left lateral and posterior hip pain-unknown injury. Denies any saddle anesthesia or loss of bowel or bladder. No low back pain. Will order left hip x-ray. Diagnostics: X-ray of the left hip was negative for any sign of fracture or malalignment. Does show severe osteoarthritis Plan: I suspect patient has severe osteoarthritis/left hip pain. For Medrol D osepak was sent to the pharmacy. Supportive measures were discussed with the patient and they voiced understanding discharge instructions and agrees to treatment plan. Return precautions reviewed Differential Diagnosis Differential diagnosis: Likely other (Left hip fracture, pelvis fracture, bursitis, hip sprain, contusion) Imaging Data Radiologist's impression: ITS Impressions Hip X-Ray 10/28/24 16:51 IMPRESSION: No acute osseous abnormality pelvis and left hip. Severe left hip osteoarthritic changes. Discharge Plan Discharge Clinical Impression: Hip osteoarthritis Qualifiers: Osteoarthritis type: unspecified Laterality: left Qualified Code(s): M16.12 - Unilateral primary osteoarthritis, left hip Acute hip pain Qualifiers: Laterality: left Qualified Code(s): M25.552 - Pain in left hip Patient Disposition: Home Condition: Stable Instructions: Antibiotic Form, Osteoarthritis (ED), Hip Pain (ED) Additional Instructions: X-rays negative for any sign of fracture or malalignment of the left hip. Does show severe osteoarthritis of the left hip Take any prescription medication only as prescribed-Medrol Dosepak May use heat or ice to the affected area Consider massage or chiropractor adjustment if this was discussed with provider May use blue emu, lidocaine patches, or asper cream to affected area- do not apply heat or ice directly over cream- can cause burn. Complete appropriate hip stretching exercises. Follow up with your PCP in 3-5 days if symptom persist. Patient Language: Latvian Prescriptions: New methylprednisolone [Medrol (Lito)] 4 mg tablets,dose pack See Rx Instructions PO .COMPLEX Qty: 21 0RF Rx Instructions: orally per package directions No Action Zyrtec 10 mg capsule 10 mg PO DAILY PRN (Reason: Allergy Symptoms) oxybutynin chloride 5 mg tablet 5 mg PO BID finasteride 5 mg tablet 5 mg PO DAILY pravastatin 20 mg tablet See Rx Instructions .ROUTE .COMPLEX Qty: 90 1RF Dose Instruction: TAKE ONE-HALF (1/2) TABLET DAILY Rx Instructions: TAKE ONE-HALF (1/2) TABLET DAILY escitalopram oxalate [Lexapro] 10 mg tablet 10 mg PO DAILY Qty: 90 1RF pantoprazole 40 mg tablet,delayed release (DR/EC) See Rx Instructions .ROUTE .COMPLEX Qty: 90 3RF Dose Instruction: TAKE 1 TABLET EVERY MORNING Rx Instructions: TAKE 1 TABLET EVERY MORNING Follow-up/Referrals: Winston Theodore MD [Primary Care Provider] - Time of Disposition: 17:00 Quality NIHSS Nursing Documentation ED NIHSS nursing documentation: reviewed/agree
[2024-10-28 16:26] VITALS: BP 150/97; PULSE 75; RESP 16; TEMP 36.2; O2SAT 98
== END 2024-10-28 17:05 | disposition home or self-care (01) ==
PROVIDERS: Emergency Provider Nurse Practitioner Family; PCP Family Medicine
DX: M16.12 Unilateral primary osteoarthritis, left hip (principal); M25.552 Pain in left hip; E78.5 Hyperlipidemia, unspecified; F41.9 Anxiety disorder, unspecified
CPT/HCPCS: 73502; 99213; G0463

== ENCOUNTER 2024-11-25 08:52 | Outpatient (CLI) | payer BC, SELFPAY ==
--- OUTSIDE RECORDS SUMMARY | 2024-11-25 08:58 | XMS_ITS | Clinical Summary ---
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 Gender Identity Not on file Sexual Orientation Not on file Plan of Treatment Health Maintenance Due Date Last Done Comments Hepatitis C Virus (HCV) Screening 1965 TdaP Immunization 1964 Cologuard 2009 Colonoscopy 2009 Colorectal Cancer Screening 2009 Immunochemical Fecal Occult Blood 2009 Pneumococcal Immunization (5 0+ years) (1 of 1 - PCV) 2014 Zoster Immunization (1 of 2) 2014 SARS-COV-2 Immunization ( - season) 2023 03/25/2021, 08/02/2020, 07/12/2020 Influenza Immunization (#1) 12/12/202401/12, 01/20/2020 Respiratory Syncytial Virus (RSV) Immunization (Adult) (1 - 1-dose 75+ series) 2039 Hepatitis B Immunization Aged Out No longer eligible based on patient's age to complete this topic Human Papillomavirus (HPV) Immunization Aged Out No longer eligible b ased on patient's age to complete this topic Meningococcal Immunization (ACWY) Aged Out No longer eligible b ased on patient's age to complete this topic Rotavirus Immunization Aged Out No lo nger eligible based on patient's age to complete this topic
--- OUTSIDE RECORDS SUMMARY | 2024-11-25 08:58 | XMS_ITS | Clinical Summary ---
Author Organization [facility] Address [address] [place] [address] Care Team Providers Care Asw Specialist Name Role Phone Winston Theodore MD Primary Care Provider [phone] Allergies No known active allergies Medications multivitamin (MULTIPLE VITAMINS) tabletIndications :Vitamin Deficiency Prevention Take 1 tablet by mouth every morning 4 Active pravastatin (PRAVACHOL) 20 mg tabletIndications :hyperlipidemia Take 1 tablet (20 mg total) by mouth nightly 8 Active hydrOXYzine (ATARAX) 10 mg tabletIndications :anxiety Take 1 tablet (10 mg total) by mouth every 8 (eight) hours as needed for anxiety 1 Active escitalopram (LEXAPRO) 10 mg tabletIndications :Generalized Anxiety Disorder Take 1 tablet (10 mg total) by mouth every morning 1 Active fluticasone propionate (Flonase Allergy Relief) 50 mcg/actuation nasal sprayIndications: Allergic Conjunctivitis,Al lergic Rhinitis Administer 1 spray into each nostril daily as needed for allergies 2 Active pnkbi-3-zko-epa-d pa-fish oil 1,050-1,200 mg capsuleIndication s:hypertriglyceri demia Take 1 capsule by mouth every morning [address] (PROTONIX) 40 mg EC tabletIndications :Treatment of Non-Bleeding Gastric Disorder Take 1 tablet (40 mg total) by mouth every morning 2 Active loratadine 10 mg capsuleIndication s:Allergic Rhinitis Take 1 capsule by mouth daily as needed (allergies) Active ciprofloxacin (CIPRO) 500 mg tablet Take 1 by mouth 2 hours prior to biopsy and take 1 tablet a few hours after biopsy 2 tablet 4 Active citalopram (CeleXA) 10 mg tablet Take 1 tablet (10 mg total) by mouth daily Active finasteride (PROSCAR) 5 mg tabletIndications :Benign prostatic hyperplasia, unspecified whether lower urinary tract symptoms present TAKE 1 TABLET DAILY 90 tablet 3 5 Active oxyBUTYnin XL (DITROPAN-XL) 5 mg 24 hr tabletIndications :Bladder Hyperactivity Take 2 tablets (10 mg total) by mouth daily 90 tablet 3 5 10/27/19 26 Active Active Problems Problem Noted Date Diagnosed Date Elevated PSA 03/15/2024 Prolapsed internal hemorrhoids 06/09/2017 Elevated prostate specific antigen (PSA) 017 Lesion of eyelid 03/05/2016 Hyperlipidemia 03/24/2014 Hyponatremia 02/23/2014 Benign neoplasm of pituitary gland 01/17/2014 Right fascicular block 01/11/2014 Overview (07/18/2016): Right bundle branch block Encounters Date Type Department Care Team Description 10/26/2024 10:20 AM CDT Office Visit [facility] Urology [address] [facility] [address] [place] [address] Jon Biswas MD Elevated PSA (Primary Dx) from Last 3 Months Surgical History Surgery Date Site/Laterality Comments TONSILLECTOMY childhood TUMOR REMOVAL 04/13/2013 - 04/12/2014 pituitary gland UPPER GASTROINTESTINAL ENDOSCOPY 4 - 04/12/2024 COLONOSCOPY 03/13/2023 - 04/12/2023 Medical History Medical History Date Comments Hx Other Medical BPH Hx Other Medical Chronic Anxiety Hx Other Medical seizures; Comme nts: [facility] 01/11/2014 - Hx Other Medical seasonal allerg ies; Comments: [facility] 01/11/2014 - Hx Other Medical anxiety; Commen ts: [facility] 01/11/2014 - Hx Other Medical hypercholestero lemia; Comments: [facility] 01/11/2014 - Hx Other Medical pituitary adeno ma; Comments: [facility] 01/11/2014 - Hx Other Medical syncope; Commen ts: [facility] 01/11/2014 - Elevated prostate specific antigen (PSA) Elevated prostate specific antigen (PSA) - (Added by SALIMA Conv) Family History Medical History Relation Name Comments Hyperlipidemia Father Hyperlipidemi a; Cancer Maternal Grandmother Hyperlipidemia Mother Hyperlipidemi a; Heart attack Other cousin Myocardial Infa rction; Heart attack Paternal Grandmother Myocard ial Infarction; Cause of : Myocardial Infarction Heart disease Paternal Grandmother Anesthesia problems Neg Hx Relation Name Status Comments Father Alive Maternal Grandmother Mother Alive Other cousin Alive Paternal Grandmother (Age 55) Social History Tobacco Use Types Packs/Day Years Used Date Smoking Tobacco: Never Smokeless Tobacco: Never Alcohol Use Standard Drinks/Week Comments Yes 0 (1 standard drink = 0.6 oz pur e alcohol) AUDIT-C Answer Date Recorded Q1: How often do you have a drink containing alc ohol? 2-4 times a month 04/19/2024 Q2: How many drinks containi ng alcohol do you have on a typical day when you are drinking? 1 or 2 04/19/2024 Q3: How often do you have si x or more drinks on one occasion? Never 04/19/2024 Personal Safety Answer Date Recorded Have you ever been in or are you currently in a harmful physical or emotional relationship or is someone making you feel afraid or unsafe? 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 Gender Identity Male 10/20/2020 3:22 PM CDT Sexual Orientation Rodrigez 10/20/2020 3: 24 PM CDT Obstetrics History Last Filed Vital Signs Vital Sign Reading Time Taken Comments Blood Pressure 131/76 04/19/2024 10:55 AM NET PROGRAMMER ANALYST Pulse 69 04/19/2024 11:00 AM NET PROGRAMMER ANALYST Temperature 36.2 C (97.2 F) 04/19/2024 9:40 AM NET PROGRAMMER ANALYST Respiratory Rate 15 04/19/2024 11:00 AM NET PROGRAMMER ANALYST Oxygen Saturation 96% 04/19/2024 11:00 AM NET PROGRAMMER ANALYST Inhaled Oxygen Concentration - - Weight 88.5 kg (195 lb) 04/19/2024 8:56 AM NET PROGRAMMER ANALYST Height 175.3 cm (5' 9) 03/24/2024 8:50 AM NET PROGRAMMER ANALYST Body Mass Index 28.8 03/24/2024 8:50 AM NET PROGRAMMER ANALYST Plan of Treatment Health Maintenance Due Date Last Done Comments Colon Cancer Screening-Colonoscopy 1964 Depression Screening 1964 Hepatitis C Screening 1964 DTaP/Tdap/Td Vaccine (1 - Tdap) 1975 Hepatitis B Screening 1982 Regular Well Visit/Exam 18-64 1982 Zoster Vaccine (1 of 2) 2014 Covid-19 Vaccine (3 - season) 2023 08/02/2020, 07/12/2020 Influenza Vaccine (#1) 2024 , 01/20/2020, 02/11/2015, Additional history exists Prostate Cancer Screening-PSA 10/20/2026 10/20/2024, 04/15/2024, 11/22/2021, Additional history exists Pneumococcal vaccine <65 Aged Out No longer eligible based on patient's age to complete this topic Procedures Procedure Name Priority Date/Time Associated Diagnosis Comments PSA SCREEN Routine 10/20/2024 12:58 PM CDT Elevated PSA from Last 3 Months Results * PSA screen (10/20/2024 12:58 PM CDT) PSA 3.58 < OR = 4.00 ng/mL [facility] Comment: The total PSA value from this assay system is standardized against the WHO standard. The test result will be approximately 20% lower when compared to the equimolar-standardized total PSA ([place] [place]). Comparison of serial PSA results should be interpreted with this fact in mind. This test was performed using the Siemens chemiluminescent method. Values obtained from different assay methods cannot be used interchangeably. PSA levels, regardless of value, should not be interpreted as absolute evidence of the presence or absence of disease. Blood 10/20/2024 12:5 8 PM CDT 10/20/2024 12:59 PM CDT us Jon Biswas MD LAB BLOOD ORDERABLES Final Result [facility] [address] [place] [address] from Last 3 Months Insurance [place] Care Teams Asw Specialist Relationship Specialty Start Date End Date Winston Theodore MD PCP - General Family Medicine 04/01/21
== END 2024-11-25 08:53 | disposition home or self-care (01) ==
LOC: ANHAUDIO 08:54
PROVIDERS: PCP Family Medicine; Visit Provider Otolaryngology
DX: H90.3 Sensorineural hearing loss, bilateral (principal)
CPT/HCPCS: 92557; 92567

== ENCOUNTER 2024-11-28 09:53 | Outpatient (CLI) | payer BC, SELFPAY ==
--- NOTE | ~2024-11-28 | MR_ITS ---
MRI of the lumbar spine Clinical History: Back pain Technique: Axial T2-weighted images, and sagittal T1-weighted, T2-weighted, and T2 fat-sat images wer e acquired. Findings: No acute fracture seen. There is 3 mm retrolisthesis of L3 over L4. There is 4 mm retrolist hesis of L4 over L5, and of L5 over S1. No bone marrow signal abnormality seen. At L1-L2, there is a left paracentral disc extrusion extending superiorly, probably impinging the exi ting left-sided nerve root at this level. Neural foramina themselves are preserved. No canal stenosis evident. At L2-L3, there is no disc bulge or herniation. No spinal canal stenosis or neural foraminal narrowin g. At L3-L4, there is degenerative disc narrowing with diffuse disc bulge and moderate facet arthropathy . No central canal stenosis. There is moderate right neural foraminal narrowing. Left neural foramen preserved. At L4-L5, there is diffuse disc bulge with mild to moderate facet arthropathy. There is mild to moder ate central canal stenosis. There is severe bilateral neural foraminal narrowing, left worse than rig ht. At L5-S1, there is diffuse disc bulge with mild facet arthropathy. No central canal stenosis. There i s severe bilateral neural foraminal narrowing. Paravertebral soft tissues are unremarkable. Impression: Left paracentral disc extrusion at L1-L2, extending superiorly, and probably impinging the exiting le ft-sided nerve root at this level. Moderate degenerative spondylitic changes at L3-L4, L4-L5, and L5-S1, as detailed above. Multiple grade 1 retrolistheses, as detailed above. Reviewed, dictated and finalized at location M. Impression: Left paracentral disc extrusion at L1-L2, extending superiorly, and probably im pinging the exiting left-sided nerve root at this level. Moderate degenerative spondylitic changes at L3-L4, L4-L5, and L5-S1, as detail ed above. Multiple grade 1 retrolistheses, as detailed above.
== END 2024-11-28 09:54 | disposition home or self-care (01) ==
LOC: GOSHIMG 09:54
PROVIDERS: PCP Chiropractor Rehabilitation; Visit Provider Chiropractor Rehabilitation
DX: M51.26 Other intervertebral disc displacement, lumbar region (principal); M43.16 Spondylolisthesis, lumbar region; M47.896 Other spondylosis, lumbar region; M47.897 Other spondylosis, lumbosacral region
CPT/HCPCS: 72148

== ENCOUNTER 2025-01-05 10:09 | Outpatient (CLI) | payer BC, SELFPAY ==
--- NOTE | ~2025-01-05 | MR_ITS ---
EXAMINATION: MR brain IAC wo/w con DATE: 01/05/2025 10:58 INDICATION: Sudden idiopathic hearing loss on the right. TECHNIQUE: Magnetic resonance imaging (MRI) of the brain, brainstem, and internal auditory canals was performed without and with 17 mL MultiHance intravenous contrast. COMPARISON: Brain MRI 02/01/2021 FINDINGS: There is an empty sella. 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 There are scattered areas of nonspecific increased T2-weighted signal intensity in the cerebral white matter, which is within normal limits for the patient's age. There is no intracranial hemorrhage, acute infarction, or abnormal intracranial mass lesion. The ventricles are normal in size. The internal auditory canals, inner ears, tympanic cavities, and mastoid air cells are normal. IMPRESSION: 1. No etiology for the patient's symptoms. Reviewed, dictated and finalized at location E.
== END 2025-01-05 10:10 | disposition home or self-care (01) ==
LOC: MICIMG 10:10
PROVIDERS: PCP Otolaryngology; Visit Provider Otolaryngology
DX: H91.20 Sudden idiopathic hearing loss, unspecified ear (principal)
CPT/HCPCS: 70553; A9577